=== PATIENT | male | born 1955 | race Two or more races ===

== ENCOUNTER 2017-04-01 08:15 | Emergency (ER) | payer OTHER ==
[~2017-04-01] VITALS: Ht 162.6 cm; Wt 71.6 kg
[2017-04-01 09:39] VITALS: BP 159/83
== END 2017-04-01 09:41 | disposition home or self-care (01) ==
LOC: ED 08:47
DX: I10 Essential (primary) hypertension (principal); Z76.0 Encounter for issue of repeat prescription
CPT/HCPCS: 99283